=== PATIENT | male | born 1980 | race Caucasian/White ===

== ENCOUNTER 2019-06-06 19:07 | Emergency (ER) | payer OTHER, MEDICAID, SELFPAY ==
[2019-06-06 19:15] VITALS: BP 125/78; PULSE 96; RESP 18; TEMP 36.4; O2SAT 100
--- NOTE | 2019-06-06 19:21 | DI.RAD.S_ITS ---
PROCEDURE: XR LUMBAR SPINE 2-3V INDICATIONS: fall TECHNIQUE: 3 views of the lumbar spine were acquired. COMPARISON: None. FINDINGS: Bones: 5 [id number] vertebrae are present. There is normal bony alignment. No vertebral body compression fractures. No suspicious bony lesions. There is moderate degenerative disc disease at L4-L5. Soft tissues: Overlying bowel gas pattern is normal. No suspicious soft tissue calcifications. IMPRESSION: No fracture. Moderate degenerative disc disease at L4-L5. Dictated by: Jaye Guardado M.D. on 06/06/2019 at 20:08 Approved by: Jaye Guardado M.D. on 06/06/2019 at 20:09
--- NOTE | 2019-06-06 19:23 | DI.RAD.S_ITS ---
PROCEDURE: XR PELVIS 1-2V INDICATIONS: fall TECHNIQUE: 1 view(s) of the pelvis acquired. COMPARISON: Merged With [facility], CR, XR LUMBAR SPINE 2-3V, 06/06/2019, 19:30. FINDINGS: Bones: No fractures or dislocations. No suspicious bony lesions. Soft tissues: Visualized bowel gas pattern is normal. No suspicious soft tissue calcifications. Moderate amount of stool in colon. IMPRESSION: No acute bony injuries. Dictated by: Jaye Guardado M.D. on 06/06/2019 at 20:07 Approved by: Jaye Guardado M.D. on 06/06/2019 at 20:08
--- NOTE | 2019-06-06 20:17 | ED_ITS ---
HPI - Fall <Malathi Guy PA-C - Last Filed: 06/06/19 21:11> General Chief Complaint: Fall Stated Complaint: Slipped, hurt back Time Seen by Provider: 06/06/19 20:15 Source: patient Mode of arrival: ambulatory Limitations: no limitations History of Present Illness HPI Narrative: This 38-year-old male comes to ED secondary to slip and fall and back contusion. He states he was running across the street when he hit his foot on the curb, scraped his left arm and hit the left side of his low back. He states that he was able to get up and walk year, but this is quite painful, came in due to his history of lumbar surgery in concern for injury. He denies any lower extremity weakness or paresthesia. He denies any difficulty urinating. He states that pain can radiate into the gluteal area but not into the leg, fairly constant now. He denies any other injury aside from an abrasion on the left arm. He states he had a tetanus vaccine about a year ago. Related Data Previous Rx's Medication Instructions Recorded cyclobenzaprine 10 mg PO Q8H #12 tab 06/06/19 hydrocodone-acetaminophen [Harmony] 1 tab PO BEDTIME PRN #2 tab 06/06/19 meloxicam 15 mg PO DAILY #10 tab 06/06/19 Allergies Allergy/AdvReac Type Severity Reaction Status Date / Time No Known Drug Allergies Allergy Verified 06/06/19 19:16 Review of Systems <Malathi Guy PA-C - Last Filed: 06/06/19 21:11> Review of Systems ROS Unobtainable: All systems reviewed & are unremarkable except as noted in HPI and below Exam <Malathi Guy PA-C - Last Filed: 06/06/19 21:11> Narrative Exam Narrative: GENERAL APPEARANCE: Patient sitting comfortably, in no distress. PULMONARY: Lungs clear to auscultation bilaterally CV: Regular rhythm regular without murmur, normal S1 and S2, no S3 or S4 MUSCULOSKELETAL: No point tenderness over the lumbar spine. Tender over the left SI joint and mid to inferior lumbar musculature most at the mid scapular line. Slightly reduced bilateral rotation and lateral bend secondary to tenderness. Normal sit:stand and gait. Lower extremity strength 5/5 bilateral hip flexors, knee extensors, foot plantar flexion. Negative modified straight leg raise NEUROLOGIC: Lower extremity sensation grossly intact bilaterally DERM: Superficial abrasion on L lower arm, no ecchymosis, abrasions or swelling to L lower back or hip Initial Vital Signs Initial Vital Signs: Vital Signs Temperature 97.5 F L 06/06/19 19:15 Pulse Rate 96 H 06/06/19 19:15 Respiratory Rate 18 06/06/19 19:15 Blood Pressure 125/78 06/06/19 19:15 Pulse Oximetry 100 06/06/19 19:15 <DO Bethel Levine Last Filed: 06/07/19 04:15> Initial Vital Signs Initial Vital Signs: Vital Signs Temperature 97.5 F L 06/06/19 19:15 Pulse Rate 96 H 06/06/19 19:15 Respiratory Rate 18 06/06/19 19:15 Blood Pressure 125/78 06/06/19 19:15 Pulse Oximetry 100 06/06/19 19:15 PFSH <Malathi Guy PA-C - Last Filed: 06/06/19 21:11> Medical History (Updated 06/06/19 @ 20:37 by Malathi Guy PA-C) Chronic low back pain (Chronic) History of cervical fracture (Resolved) Surgical History (Updated 06/06/19 @ 20:37 by Malathi Guy PA-C) History of lumbar laminectomy (Resolved) Social History (Updated 06/06/19 @ 20:37 by Malathi Guy PA-C) Smoking Status: Current some day smoker Social History (Updated 06/06/19 @ 20:37 by Malathi Guy PA-C) Smoking Status: Current some day smoker Comment: Social ETOH, denies drug use Course <Malathi Guy PA-C - Last Filed: 06/06/19 21:11> Orders Ordered: ED Orders 06/06/19 19:21 XR lumbar spine 2-3V Stat 06/06/19 19:23 XR pelvis 1-2V Stat Vital Signs - 8 hr 06/06/19 19:15 Temperature 97.5 F L Pulse Rate 96 H Respiratory Rate 18 Blood Pressure 125/78 Pulse Oximetry 100 <DO Bethel Levine Last Filed: 06/07/19 04:15> Orders Ordered: ED Orders 06/06/19 19:21 XR lumbar spine 2-3V Stat 06/06/19 19:23 XR pelvis 1-2V Stat Vital Signs - 8 hr 06/06/19 19:15 Temperature 97.5 F L Pulse Rate 96 H Respiratory Rate 18 Blood Pressure 125/78 Pulse Oximetry 100 MDM - Fall <Malathi Guy PA-C - Last Filed: 06/06/19 21:11> Imaging Data Pelvis: Radiologist's impression: [address] [address] XRay Report Signed Patient: Dariel Pendleton [facility]#: [id number] : 1980Acct:[id number] Age/Sex: 38 / MDate of Service: 06/06/19 Loc: ED Accession Number: [id number] Procedure: XR pelvis 1-2V Ordering Provider: Malathi Guy P.A-C PROCEDURE: XR PELVIS 1-2V INDICATIONS: fall TECHNIQUE: 1 view(s) of the pelvis acquired. COMPARISON: [facility], , XR LUMBAR SPINE 2-3V, 06/06/2019, 19:30. FINDINGS: Bones: No fractures or dislocations. No suspicious bony lesions. Soft tissues: Visualized bowel gas pattern is normal. No suspicious soft tissue calcifications. Moderate amount of stool in colon. IMPRESSION: No acute bony injuries. Dictated by: Jaye Guardado M.D. on 06/06/2019 at 20:07 Approved by: Jaye Guardado M.D. on 06/06/2019 at 20:08 Lumbar : Radiologist's impression: [address] [address] XRay Report Signed Patient: Dariel Pendleton [facility]#: [id number] : 1980Acct:[id number] Age/Sex: 38 / MDate of Service: 06/06/19 Loc: ED Accession Number: [id number] Procedure: XR lumbar spine 2-3V Ordering Provider: Malathi Guy P.A-C PROCEDURE: XR LUMBAR SPINE 2-3V INDICATIONS: fall TECHNIQUE: 3 views of the lumbar spine were acquired. COMPARISON: None. FINDINGS: Bones: 5 [id number] vertebrae are present. There is normal bony alignment. No vertebral body compression fractures. No suspicious bony lesions. There is moderate degenerative disc disease at L4-L5. Soft tissues: Overlying bowel gas pattern is normal. No suspicious soft tissue calcifications. IMPRESSION: No fracture. Moderate degenerative disc disease at L4-L5. Dictated by: aJye Guardado M.D. on 06/06/2019 at 20:08 Approved by: Jaye Guardado M.D. on 06/06/2019 at 20:09 Discharge Plan Departure Patient Disposition: Home Clinical Impression: Contusion of lower back Qualifiers: Encounter type: initial encounter Qualified Code(s): S30.0XXA - Contusion of lower back and pelvis, initial encounter Low back strain Qualifiers: Encounter type: initial encounter Qualified Code(s): S39.012A - Strain of muscle, fascia and tendon of lower back, initial encounter Discharge Date/Time: 06/06/19 20:34 Interventions: ED Discharge Assessment Last Done: 06/06/19 20:34 Instructions: DI for Low Back Pain Activity Restrictions/Additional Instructions: As we talked about, you should return if you have any acutely worsening symptoms or new symptoms over the weekend such as weakness or numbness in your legs, inability to urinate or walk like you could this evening. Otherwise, please take the once daily anti-inflammatory meloxicam instead of your ibuprofen to see if this is more helpful for you. Take the muscle relaxant cyclobenzaprine as needed but remember this can make you sleepy and not to drive. I have also given you a dose of Lortab if needed for this evening. Please call the health human resources operations coordinator at [phone] to get referred to a local primary care provider for follow-up and referral if needed for further treatment Prescriptions: New cyclobenzaprine 10 mg tablet 10 mg PO Q8H Qty: 12 RF: 0 hydrocodone-acetaminophen [Harmony] 5-325 mg tablet 1 tab PO BEDTIME PRN (Reason: acute back pain) Qty: 2 RF: 0 meloxicam 15 mg tablet 15 mg PO DAILY Qty: 10 RF: 0 <Avi Putnam DO - Last Filed: 06/07/19 04:15> Cosign ED Attending Ladan Attestation: I was immediately available in the department for consultation. Documentation has been reviewed. I agree with assessment and plan.
== END 2019-06-06 20:34 | disposition home or self-care (01) ==
PROVIDERS: Emergency Provider Internal Medicine
DX: S30.0XXA Contusion of lower back and pelvis, initial encounter (principal); S39.012A Strain of muscle, fascia and tendon of lower back, initial encounter; W01.0XXA Fall on same level from slipping, tripping and stumbling without subsequent striking against object, initial encounter
CPT/HCPCS: 72100; 72170; 99282; 99283